=== PATIENT | female | born 1955 | race Caucasian/White ===

== ENCOUNTER 2021-07-22 15:03 | Inpatient (IN) | payer MEDICARE ==
[~2021-07-22] VITALS: Ht 157.5 cm; Wt 74.6 kg
[2021-07-22] MEDS ORDERED: ACETAMINOPHEN 325 MG TABLET PO PRN ×2 (16:00→16:45)
[2021-07-22] MEDS ORDERED: ONDANSETRON HCL 4 MG/2 ML VIAL IVP PRN ×2 (16:00→16:45)
[2021-07-22] MEDS ORDERED: DEXTROSE 50%-WATER 25 GM/50 ML SYRINGE IVP PRN (16:45)
[2021-07-22] MEDS ORDERED: DEXAMETHASONE SOD PHOS 4 MG/ML VIAL IVP SCH (16:45)
[2021-07-22] MEDS ORDERED: MAGNESIUM HYDROXIDE SUSPENSION 30 ML UDCUP PO PRN (16:45)
[2021-07-22] MEDS ORDERED: ALBUTEROL SULFATE HFA 90 MCG/PUFF 8 GM INHALER IH PRN (16:45)
[2021-07-22] MEDS ORDERED: REMDESIVIR 200 MG in SODIUM CHLORIDE 0.9% 250 ML IV ONE (17:00)
[2021-07-22 17:18] LABS: BAND NEUTROPHILS % (MANUAL) 0 % (0-5)
[2021-07-22 17:20] LABS: HEMATOCRIT 39.8 % (36-46); HEMOGLOBIN 13.4 g/dL (12.0-16.0); MEAN CORPUSCULAR HEMOGLOBIN 31.5 pg (26.0-34.0); MEAN CORPUSCULAR HGB CONC 33.7 G/dL (31.0-37.0); MEAN CORPUSCULAR VOLUME 94 fL (80-100); PLATELET COUNT (AUTO) 327 K/uL (150-450); RED BLOOD CELL COUNT(AUTO) 4.25 MIL/uL (4.00-5.20); RED CELL DISTRIBUTION WIDTH 13.4 % (11.5-14.5)
[2021-07-22 17:40] LABS: ALBUMIN 2.9 g/dL (3.4-5.0); BILIRUBIN,TOTAL 0.6 mg/dL (0.1-1.0); CALCIUM, TOTAL 9.1 mg/dL (8.8-10.5); CREATININE 0.99 mg/dL (0.60-1.30); POTASSIUM 3.8 mmol/L (3.5-5.1); TOTAL PROTEIN, SERUM 7.9 g/dL (6.4-8.2)
[2021-07-22 17:45] LABS: LACTIC ACID 1.5 mmol/L (0.4-2.0)
[2021-07-22] MEDS ORDERED: TOCILIZUMAB 600 MG in SODIUM CHLORIDE 0.9% 70 ML IV ONE (18:00)
[2021-07-22 18:04] LABS: C-REACTIVE PROTEIN QUANT 25.71 mg/dL (0.00-0.30); LYMPHOCYTES % (MANUAL) 2 % (22-44); SEGMENTED NEUTROPHILS % 98 % (40-70)
[2021-07-22] MEDS ORDERED: SODIUM CHLORIDE 0.9% 250 ML IV ONE (20:28)
[2021-07-22] MEDS: TEMAZEPAM 15 MG CAPSULE PO SCH (20:38)
[2021-07-22] MEDS: HYDROCODONE/CHLORPHEN POLIS 10-8 MG/5 ML ORAL.SYG PO SCH (20:38)
[2021-07-22] MEDS: FAMOTIDINE 20 MG TABLET PO SCH (20:38)
[2021-07-22] MEDS: BENZONATATE 100 MG CAPSULE PO PRN (20:38)
[2021-07-22] MEDS ORDERED: DEXAMETHASONE SOD PHOS 10 MG/ML VIAL IVP SCH (21:00)
[2021-07-22 21:36] LABS: GLUCOSE,POINT OF CARE 128 MG/DL (70-110)
[2021-07-22] MEDS: DEXAMETHASONE SOD PHOS 10 MG/ML VIAL IVP SCH (22:31)
[2021-07-23] VITALS: BP 129/80
[2021-07-23] MEDS ORDERED: IOHEXOL 350 MG/ML 100 ML VIAL ONE (00:05)
[2021-07-23] MEDS ORDERED: SODIUM CHLORIDE 0.9% 100 ML ONE (00:06)
[2021-07-23] MEDS: HEPARIN SODIUM,PORCINE 5,000 UNITS/ML VIAL SQ SCH ×3 (01:05→16:47)
[2021-07-23 04:00] VITALS: BP 122/80
[2021-07-23 05:53] LABS: ALANINE AMINOTRANSFERASE 73 U/L (12-78); ALBUMIN 2.6 g/dL (3.4-5.0); ALKALINE PHOSPHATASE 84 U/L (46-116); ANION GAP 8 mmol/L (8-16); ASPARTATE AMINOTRANSFERASE 30 U/L (15-37); BILIRUBIN,TOTAL 0.5 mg/dL (0.1-1.0); C-REACTIVE PROTEIN QUANT 24.38 mg/dL (0.00-0.30); CALCIUM, TOTAL 9.1 mg/dL (8.8-10.5); CARBON DIOXIDE 24 mmol/L (22-29); CHLORIDE 102 mmol/L (98-107); CREATININE 0.91 mg/dL (0.60-1.30); GLOMERULAR FILTR. RATE CALC > 60 mL/min (>60); GLUCOSE,RANDOM 141 mg/dL (70-110); POTASSIUM 4.1 mmol/L (3.5-5.1); SODIUM SERUM 134 mmol/L (136-145); TOTAL PROTEIN, SERUM 7.5 g/dL (6.4-8.2); UREA NITROGEN, BLOOD 18 mg/dL (7-18)
[2021-07-23 07:06] LABS: GLUCOSE,POINT OF CARE 133 MG/DL (70-110)
[2021-07-23 07:31] LABS: BASOPHILS % (AUTO) 0.1 % (0.0-2.0); EOSINOPHILS % (AUTO) 0 % (1.0-6.0); HEMATOCRIT 36.9 % (36-46); HEMOGLOBIN 12.5 g/dL (12.0-16.0); LYMPHOCYTES # (AUTO) 0.7 K/uL (1.0-4.8); LYMPHOCYTES % (AUTO) 3.9 % (22.0-44.0); MEAN CORPUSCULAR HEMOGLOBIN 31.6 pg (26.0-34.0); MEAN CORPUSCULAR HGB CONC 33.9 G/dL (31.0-37.0); MEAN CORPUSCULAR VOLUME 93 fL (80-100); MONOCYTES # (AUTO) 0.3 K/uL (0.1-1.0); MONOCYTES % (AUTO) 1.8 % (2.0-9.0); NEUTROPHILS # (AUTO) 16.6 K/uL (1.8-7.7); PLATELET COUNT (AUTO) 325 K/uL (150-450); RED BLOOD CELL COUNT(AUTO) 3.97 MIL/uL (4.00-5.20); RED CELL DISTRIBUTION WIDTH 13.1 % (11.5-14.5)
[2021-07-23 07:33] LABS: NEUTROPHILS % (AUTO) 94.2 % (40.0-70.0)
[2021-07-23 08:00] VITALS: BP 108/68
[2021-07-23] MEDS: AmLODIPine BESYLATE 5 MG TABLET PO SCH (09:47)
[2021-07-23] MEDS: FAMOTIDINE 20 MG TABLET PO SCH ×2 (09:47→21:14)
[2021-07-23] MEDS: HYDROCODONE/CHLORPHEN POLIS 10-8 MG/5 ML ORAL.SYG PO SCH ×2 (09:47→21:15)
[2021-07-23] MEDS: DEXAMETHASONE SOD PHOS 10 MG/ML VIAL IVP SCH ×2 (09:47→23:20)
[2021-07-23] MEDS: REMDESIVIR 100 MG in SODIUM CHLORIDE 0.9% 250 ML IV SCH (16:46)
[2021-07-23] MEDS: CefTRIAXone 1 GM/DEXTROSE 50 ML IV SCH (16:46)
[2021-07-23] MEDS: AZITHROMYCIN 500 MG/NS 250 ML IV SCH (16:47)
[2021-07-23 19:07] VITALS: BP 128/59
[2021-07-23 20:00] VITALS: BP 120/45
[2021-07-23 20:46] LABS: GLUCOSE,POINT OF CARE 124 MG/DL (70-110)
[2021-07-23 20:56] LABS: GLUCOSE,POINT OF CARE 155 MG/DL (70-110)
[2021-07-23] MEDS: BENZONATATE 100 MG CAPSULE PO PRN (21:14)
[2021-07-23] MEDS: TEMAZEPAM 15 MG CAPSULE PO SCH (21:15)
[2021-07-23] MEDS: INSULIN LISPRO 100 UNITS/ML SQ PRN (21:16)
[2021-07-24] VITALS: BP 124/69
[2021-07-24] MEDS: HEPARIN SODIUM,PORCINE 5,000 UNITS/ML VIAL SQ SCH ×3 (00:40→15:16)
[2021-07-24 04:00] VITALS: BP 123/79
[2021-07-24] MEDS: INSULIN LISPRO 100 UNITS/ML SQ PRN (06:35)
[2021-07-24 06:46] LABS: GLUCOSE,POINT OF CARE 147 MG/DL (70-110)
[2021-07-24] MEDS: DEXTRAN 70 0.1%/HYPROMELL 0.3% 0.9 ML OPHTHALMIC SOLUTION [PF] OU SCH ×4 (07:58→20:00)
[2021-07-24] MEDS: HYDROCODONE/CHLORPHEN POLIS 10-8 MG/5 ML ORAL.SYG PO SCH ×2 (07:59→22:20)
[2021-07-24 08:00] VITALS: BP 124/77
[2021-07-24] MEDS: AmLODIPine BESYLATE 5 MG TABLET PO SCH (08:00)
[2021-07-24] MEDS: BENZONATATE 100 MG CAPSULE PO PRN ×2 (08:00→17:23)
[2021-07-24] MEDS: DEXAMETHASONE SOD PHOS 10 MG/ML VIAL IVP SCH ×2 (08:00→22:20)
[2021-07-24] MEDS: FAMOTIDINE 20 MG TABLET PO SCH ×2 (08:00→22:21)
[2021-07-24 08:19] LABS: ALANINE AMINOTRANSFERASE 186 U/L (12-78); ALBUMIN 2.3 g/dL (3.4-5.0); ALKALINE PHOSPHATASE 75 U/L (46-116); ANION GAP 11 mmol/L (8-16); ASPARTATE AMINOTRANSFERASE 92 U/L (15-37); BILIRUBIN,TOTAL 0.3 mg/dL (0.1-1.0); CALCIUM, TOTAL 8.9 mg/dL (8.8-10.5); CARBON DIOXIDE 23 mmol/L (22-29); CHLORIDE 105 mmol/L (98-107); CREATININE 0.82 mg/dL (0.60-1.30); FERRITIN 2562 ng/mL (8-252); GLOMERULAR FILTR. RATE CALC > 60 mL/min (>60); GLUCOSE,RANDOM 156 mg/dL (70-110); POTASSIUM 4.5 mmol/L (3.5-5.1); SODIUM SERUM 139 mmol/L (136-145); TOTAL PROTEIN, SERUM 6.6 g/dL (6.4-8.2); UREA NITROGEN, BLOOD 32 mg/dL (7-18)
[2021-07-24 12:00] VITALS: BP 143/80
[2021-07-24 12:06] LABS: GLUCOSE,POINT OF CARE 134 MG/DL (70-110)
[2021-07-24] MEDS: CefTRIAXone 1 GM/DEXTROSE 50 ML IV SCH (15:16)
[2021-07-24 16:00] VITALS: BP 151/76
[2021-07-24] MEDS: REMDESIVIR 100 MG in SODIUM CHLORIDE 0.9% 250 ML IV SCH (16:35)
[2021-07-24] MEDS: AZITHROMYCIN 500 MG/NS 250 ML IV SCH (16:35)
[2021-07-24] MEDS ORDERED: SODIUM CHLORIDE 0.9% 250 ML IV ONE (17:01)
[2021-07-24 20:00] VITALS: BP 114/58
[2021-07-24] MEDS: TEMAZEPAM 15 MG CAPSULE PO SCH (22:21)
[2021-07-25] VITALS: BP 137/88
[2021-07-25] MEDS: DEXTRAN 70 0.1%/HYPROMELL 0.3% 0.9 ML OPHTHALMIC SOLUTION [PF] OU SCH ×6 (00:26→21:45)
[2021-07-25] MEDS: HEPARIN SODIUM,PORCINE 5,000 UNITS/ML VIAL SQ SCH ×3 (00:26→16:32)
[2021-07-25 04:00] VITALS: BP 134/76
[2021-07-25 06:44] LABS: BASOPHILS % (AUTO) 0.2 % (0.0-2.0); EOSINOPHILS % (AUTO) 0 % (1.0-6.0); HEMATOCRIT 37.4 % (36-46); HEMOGLOBIN 12.6 g/dL (12.0-16.0); LYMPHOCYTES # (AUTO) 0.5 K/uL (1.0-4.8); LYMPHOCYTES % (AUTO) 3.7 % (22.0-44.0); MEAN CORPUSCULAR HEMOGLOBIN 31.5 pg (26.0-34.0); MEAN CORPUSCULAR HGB CONC 33.9 G/dL (31.0-37.0); MEAN CORPUSCULAR VOLUME 93 fL (80-100); MONOCYTES # (AUTO) 0.3 K/uL (0.1-1.0); MONOCYTES % (AUTO) 2.1 % (2.0-9.0); NEUTROPHILS # (AUTO) 13.5 K/uL (1.8-7.7); PLATELET COUNT (AUTO) 343 K/uL (150-450); RED BLOOD CELL COUNT(AUTO) 4.01 MIL/uL (4.00-5.20); RED CELL DISTRIBUTION WIDTH 12.7 % (11.5-14.5)
[2021-07-25 07:41] LABS: ALANINE AMINOTRANSFERASE 182 U/L (12-78); ALBUMIN 2.3 g/dL (3.4-5.0); ALKALINE PHOSPHATASE 72 U/L (46-116); ANION GAP 12 mmol/L (8-16); ASPARTATE AMINOTRANSFERASE 52 U/L (15-37); BILIRUBIN,TOTAL 0.3 mg/dL (0.1-1.0); C-REACTIVE PROTEIN QUANT 6.01 mg/dL (0.00-0.30); CALCIUM, TOTAL 8.8 mg/dL (8.8-10.5); CARBON DIOXIDE 23 mmol/L (22-29); CHLORIDE 105 mmol/L (98-107); CREATININE 0.78 mg/dL (0.60-1.30); FERRITIN 1871 ng/mL (8-252); GLOMERULAR FILTR. RATE CALC > 60 mL/min (>60); GLUCOSE,RANDOM 173 mg/dL (70-110); POTASSIUM 4.6 mmol/L (3.5-5.1); SODIUM SERUM 140 mmol/L (136-145); TOTAL PROTEIN, SERUM 6.4 g/dL (6.4-8.2); UREA NITROGEN, BLOOD 33 mg/dL (7-18)
[2021-07-25 08:00] VITALS: BP 121/80
[2021-07-25] MEDS: HYDROCODONE/CHLORPHEN POLIS 10-8 MG/5 ML ORAL.SYG PO SCH ×2 (09:07→21:45)
[2021-07-25] MEDS: AmLODIPine BESYLATE 5 MG TABLET PO SCH (09:07)
[2021-07-25] MEDS: ETHYL ALCOHOL 62% ANTISEPTIC NASAL INHALANT 0.6 ML AMPUL NASAL SCH ×2 (09:07→21:45)
[2021-07-25] MEDS: DEXAMETHASONE SOD PHOS 10 MG/ML VIAL IVP SCH ×2 (09:07→21:46)
[2021-07-25] MEDS: FAMOTIDINE 20 MG TABLET PO SCH ×2 (09:09→21:48)
[2021-07-25 12:00] VITALS: BP 121/80
[2021-07-25 14:11] LABS: GLUCOSE,POINT OF CARE 159 MG/DL (70-110)
[2021-07-25 16:00] VITALS: BP 120/76
[2021-07-25] MEDS: BENZONATATE 100 MG CAPSULE PO PRN (16:29)
[2021-07-25] MEDS: CefTRIAXone 1 GM/DEXTROSE 50 ML IV SCH (16:33)
[2021-07-25] MEDS: REMDESIVIR 100 MG in SODIUM CHLORIDE 0.9% 250 ML IV SCH (17:14)
[2021-07-25] MEDS: AZITHROMYCIN 500 MG/NS 250 ML IV SCH (17:17)
[2021-07-25] MEDS ORDERED: SODIUM CHLORIDE 0.9% 250 ML IV ONE (17:19)
[2021-07-25 20:00] VITALS: BP 138/75
[2021-07-25] MEDS: TEMAZEPAM 15 MG CAPSULE PO SCH (21:46)
[2021-07-26] VITALS: BP 124/68
[2021-07-26] MEDS: HEPARIN SODIUM,PORCINE 5,000 UNITS/ML VIAL SQ SCH ×3 (01:16→17:21)
[2021-07-26] MEDS: DEXTRAN 70 0.1%/HYPROMELL 0.3% 0.9 ML OPHTHALMIC SOLUTION [PF] OU SCH ×6 (01:17→21:44)
[2021-07-26 01:26] LABS: GLUCOSE,POINT OF CARE 175 MG/DL (70-110)
[2021-07-26 04:00] VITALS: BP 143/78
[2021-07-26 05:45] LABS: ABG BASE EXCESS -2.4 mmol/L (-2.0-3.0); ABG CARBOXYHEMOGLOBIN 0.2 % (0.0-1.5); ABG HCO3 22.9 mmol/L (22.0-26.0); ABG METHEMOGLOBIN 0.3 % (0.0-1.5); ABG OXYGEN SATURATION 92.2 % (95.0-98.0); ABG OXYHEMOGLOBIN 91.7 % (94.0-100.0); ABG PCO2 35 mmHg (35-45); ABG PH 7.421 (7.35-7.450); ABG TOTAL HEMOGLOBIN 13.2 G/dL (12.0-18.0); PO2, ARTERIAL BG 62.8 mmHg (79.0-87.0); SOURCE, BLOOD GAS ARTERIAL; TEMPERATURE, FAHRENHEIT, BG 98.6 FAHREN (96.0-98.6)
[2021-07-26 05:46] LABS: O2 DEVICE,BLOOD GAS HFNC (ROOM AIR); SITE, BLOOD GAS LFT RADIAL
[2021-07-26 06:40] LABS: ALANINE AMINOTRANSFERASE 145 U/L (12-78); ALBUMIN 2.4 g/dL (3.4-5.0); ALKALINE PHOSPHATASE 68 U/L (46-116); ANION GAP 11 mmol/L (8-16); ASPARTATE AMINOTRANSFERASE 27 U/L (15-37); BILIRUBIN,TOTAL 0.3 mg/dL (0.1-1.0); CALCIUM, TOTAL 8.9 mg/dL (8.8-10.5); CARBON DIOXIDE 24 mmol/L (22-29); CHLORIDE 104 mmol/L (98-107); GLOMERULAR FILTR. RATE CALC > 60 mL/min (>60); GLUCOSE,RANDOM 176 mg/dL (70-110); POTASSIUM 4.6 mmol/L (3.5-5.1); SODIUM SERUM 139 mmol/L (136-145); TOTAL PROTEIN, SERUM 6.2 g/dL (6.4-8.2); UREA NITROGEN, BLOOD 31 mg/dL (7-18)
[2021-07-26 08:00] VITALS: BP 134/62
[2021-07-26] MEDS: ETHYL ALCOHOL 62% ANTISEPTIC NASAL INHALANT 0.6 ML AMPUL NASAL SCH ×2 (08:24→21:43)
[2021-07-26] MEDS: DEXAMETHASONE SOD PHOS 10 MG/ML VIAL IVP SCH ×2 (08:24→21:43)
[2021-07-26] MEDS: AmLODIPine BESYLATE 5 MG TABLET PO SCH (08:24)
[2021-07-26] MEDS: HYDROCODONE/CHLORPHEN POLIS 10-8 MG/5 ML ORAL.SYG PO SCH ×2 (08:27→21:44)
[2021-07-26] MEDS: FAMOTIDINE 20 MG TABLET PO SCH ×2 (08:27→21:43)
[2021-07-26 09:12] LABS: GLUCOSE,POINT OF CARE 159 MG/DL (70-110)
[2021-07-26 12:00] VITALS: BP 125/71
[2021-07-26 13:06] LABS: GLUCOSE,POINT OF CARE 168 MG/DL (70-110)
[2021-07-26 16:00] VITALS: BP 143/111
[2021-07-26] MEDS: INSULIN LISPRO 100 UNITS/ML SQ PRN (17:31)
[2021-07-26 17:32] LABS: GLUCOSE,POINT OF CARE 184 MG/DL (70-110)
[2021-07-26] MEDS: REMDESIVIR 100 MG in SODIUM CHLORIDE 0.9% 250 ML IV SCH (17:42)
[2021-07-26 20:44] VITALS: BP 150/94
[2021-07-26] MEDS: TEMAZEPAM 15 MG CAPSULE PO SCH (21:44)
[2021-07-26 22:45] LABS: GLUCOSE,POINT OF CARE 205 MG/DL (70-110)
[2021-07-27] VITALS: BP 149/79
[2021-07-27] MEDS: DEXTRAN 70 0.1%/HYPROMELL 0.3% 0.9 ML OPHTHALMIC SOLUTION [PF] OU SCH ×7 (00:34→23:39)
[2021-07-27] MEDS: HEPARIN SODIUM,PORCINE 5,000 UNITS/ML VIAL SQ SCH ×4 (00:34→23:39)
[2021-07-27 04:10] VITALS: BP 135/75
[2021-07-27 06:56] LABS: GLUCOSE,POINT OF CARE 164 MG/DL (70-110)
[2021-07-27 08:00] VITALS: BP 139/89
[2021-07-27] MEDS: ETHYL ALCOHOL 62% ANTISEPTIC NASAL INHALANT 0.6 ML AMPUL NASAL SCH ×2 (09:33→20:44)
[2021-07-27] MEDS: DEXAMETHASONE SOD PHOS 10 MG/ML VIAL IVP SCH (09:34)
[2021-07-27] MEDS: FAMOTIDINE 20 MG TABLET PO SCH ×2 (09:35→20:44)
[2021-07-27] MEDS: HYDROCODONE/CHLORPHEN POLIS 10-8 MG/5 ML ORAL.SYG PO SCH ×2 (09:35→20:44)
[2021-07-27] MEDS: AmLODIPine BESYLATE 5 MG TABLET PO SCH (09:35)
[2021-07-27 12:00] VITALS: BP 136/79
[2021-07-27 12:06] LABS: GLUCOSE,POINT OF CARE 134 MG/DL (70-110)
[2021-07-27 16:00] VITALS: BP 120/75
[2021-07-27 17:56] LABS: GLUCOSE,POINT OF CARE 149 MG/DL (70-110)
[2021-07-27 20:13] VITALS: BP 112/63
[2021-07-27] MEDS: TEMAZEPAM 15 MG CAPSULE PO SCH (20:44)
[2021-07-27] MEDS: INSULIN LISPRO 100 UNITS/ML SQ PRN (21:08)
[2021-07-27 21:36] LABS: GLUCOSE,POINT OF CARE 186 MG/DL (70-110)
[2021-07-28] VITALS: BP 127/71
[2021-07-28] MEDS: DEXTRAN 70 0.1%/HYPROMELL 0.3% 0.9 ML OPHTHALMIC SOLUTION [PF] OU SCH ×5 (02:52→20:33)
[2021-07-28 04:00] VITALS: BP 123/71
[2021-07-28 07:01] LABS: GLUCOSE,POINT OF CARE 121 MG/DL (70-110)
[2021-07-28 08:00] VITALS: BP 109/67
[2021-07-28] MEDS: HEPARIN SODIUM,PORCINE 5,000 UNITS/ML VIAL SQ SCH ×2 (08:07→15:17)
[2021-07-28] MEDS: AmLODIPine BESYLATE 5 MG TABLET PO SCH (08:07)
[2021-07-28] MEDS: FAMOTIDINE 20 MG TABLET PO SCH ×2 (08:07→20:33)
[2021-07-28] MEDS: BENZONATATE 100 MG CAPSULE PO PRN (08:07)
[2021-07-28] MEDS: DEXAMETHASONE SOD PHOS 10 MG/ML VIAL IVP SCH (09:00)
[2021-07-28] MEDS: ETHYL ALCOHOL 62% ANTISEPTIC NASAL INHALANT 0.6 ML AMPUL NASAL SCH ×2 (09:41→20:33)
[2021-07-28] MEDS: HYDROCODONE/CHLORPHEN POLIS 10-8 MG/5 ML ORAL.SYG PO SCH ×2 (09:41→20:33)
[2021-07-28 11:56] LABS: GLUCOSE,POINT OF CARE 123 MG/DL (70-110)
[2021-07-28 12:00] VITALS: BP 109/61
[2021-07-28 16:00] VITALS: BP 125/81
[2021-07-28 17:16] LABS: GLUCOSE,POINT OF CARE 97 MG/DL (70-110)
[2021-07-28 20:00] VITALS: BP 108/69
[2021-07-28] MEDS: TEMAZEPAM 15 MG CAPSULE PO SCH (20:33)
[2021-07-28 22:26] LABS: GLUCOSE,POINT OF CARE 108 MG/DL (70-110)
[2021-07-29] VITALS (7 sets, daily range): BP systolic 94–144; BP diastolic 30–78
[2021-07-29] MEDS: DEXTRAN 70 0.1%/HYPROMELL 0.3% 0.9 ML OPHTHALMIC SOLUTION [PF] OU SCH ×6 (01:53→20:10)
[2021-07-29] MEDS: HEPARIN SODIUM,PORCINE 5,000 UNITS/ML VIAL SQ SCH ×3 (01:53→16:06)
[2021-07-29 05:52] LABS: BASOPHILS % (AUTO) 0.5 % (0.0-2.0); EOSINOPHILS % (AUTO) 1.1 % (1.0-6.0); HEMATOCRIT 43.4 % (36-46); HEMOGLOBIN 14.9 g/dL (12.0-16.0); LYMPHOCYTES # (AUTO) 1.7 K/uL (1.0-4.8); LYMPHOCYTES % (AUTO) 18.2 % (22.0-44.0); MEAN CORPUSCULAR HGB CONC 34.4 G/dL (31.0-37.0); MEAN CORPUSCULAR VOLUME 93 fL (80-100); MONOCYTES # (AUTO) 0.6 K/uL (0.1-1.0); MONOCYTES % (AUTO) 6.2 % (2.0-9.0); NEUTROPHILS # (AUTO) 6.8 K/uL (1.8-7.7); PLATELET COUNT (AUTO) 346 K/uL (150-450); RED BLOOD CELL COUNT(AUTO) 4.67 MIL/uL (4.00-5.20); RED CELL DISTRIBUTION WIDTH 12.9 % (11.5-14.5)
[2021-07-29 06:11] LABS: ANION GAP 8 mmol/L (8-16); C-REACTIVE PROTEIN QUANT 0.72 mg/dL (0.00-0.30); CALCIUM, TOTAL 8.8 mg/dL (8.8-10.5); CARBON DIOXIDE 30 mmol/L (22-29); CHLORIDE 99 mmol/L (98-107); CREATININE 0.75 mg/dL (0.60-1.30); GLOMERULAR FILTR. RATE CALC > 60 mL/min (>60); GLUCOSE,RANDOM 99 mg/dL (70-110); POTASSIUM 4.4 mmol/L (3.5-5.1); SODIUM SERUM 137 mmol/L (136-145); UREA NITROGEN, BLOOD 30 mg/dL (7-18)
[2021-07-29 06:46] LABS: GLUCOSE,POINT OF CARE 99 MG/DL (70-110)
[2021-07-29] MEDS: FAMOTIDINE 20 MG TABLET PO SCH ×2 (07:48→20:10)
[2021-07-29] MEDS: AmLODIPine BESYLATE 5 MG TABLET PO SCH (07:48)
[2021-07-29] MEDS: BENZONATATE 100 MG CAPSULE PO PRN ×2 (07:48→16:36)
[2021-07-29] MEDS: DEXAMETHASONE SOD PHOS 10 MG/ML VIAL IVP SCH (07:48)
[2021-07-29] MEDS: HYDROCODONE/CHLORPHEN POLIS 10-8 MG/5 ML ORAL.SYG PO SCH ×2 (07:49→20:11)
[2021-07-29] MEDS: ETHYL ALCOHOL 62% ANTISEPTIC NASAL INHALANT 0.6 ML AMPUL NASAL SCH ×2 (07:55→20:10)
[2021-07-29] MEDS: INSULIN LISPRO 100 UNITS/ML SQ PRN ×3 (12:13→21:55)
[2021-07-29 16:47] LABS: GLUCOSE,POINT OF CARE 162 MG/DL (70-110)
[2021-07-29 18:01] LABS: GLUCOSE,POINT OF CARE 162 MG/DL (70-110)
[2021-07-29] MEDS: TEMAZEPAM 15 MG CAPSULE PO SCH (20:10)
[2021-07-29 22:06] LABS: GLUCOSE,POINT OF CARE 158 MG/DL (70-110)
[2021-07-30] VITALS: BP 114/72
[2021-07-30] MEDS: HEPARIN SODIUM,PORCINE 5,000 UNITS/ML VIAL SQ SCH ×3 (01:30→15:53)
[2021-07-30 04:00] VITALS: BP 112/61
[2021-07-30] MEDS: DEXTRAN 70 0.1%/HYPROMELL 0.3% 0.9 ML OPHTHALMIC SOLUTION [PF] OU SCH ×6 (04:00→21:38)
[2021-07-30] MEDS: AmLODIPine BESYLATE 5 MG TABLET PO SCH (07:51)
[2021-07-30] MEDS: FAMOTIDINE 20 MG TABLET PO SCH ×2 (07:51→21:38)
[2021-07-30] MEDS: HYDROCODONE/CHLORPHEN POLIS 10-8 MG/5 ML ORAL.SYG PO SCH ×2 (07:51→21:38)
[2021-07-30] MEDS: DEXAMETHASONE SOD PHOS 10 MG/ML VIAL IVP SCH (07:51)
[2021-07-30] MEDS: BENZONATATE 100 MG CAPSULE PO PRN (07:52)
[2021-07-30] MEDS: ETHYL ALCOHOL 62% ANTISEPTIC NASAL INHALANT 0.6 ML AMPUL NASAL SCH ×2 (07:52→21:38)
[2021-07-30 08:00] VITALS: BP 110/48
[2021-07-30 12:00] VITALS: BP 120/73
[2021-07-30] MEDS: INSULIN LISPRO 100 UNITS/ML SQ PRN ×2 (12:11→16:58)
[2021-07-30 12:21] LABS: GLUCOSE,POINT OF CARE 161 MG/DL (70-110)
[2021-07-30 16:00] VITALS: BP 133/91
[2021-07-30 17:06] LABS: GLUCOSE,POINT OF CARE 165 MG/DL (70-110)
[2021-07-30 20:00] VITALS: BP 131/71
[2021-07-30] MEDS: TEMAZEPAM 15 MG CAPSULE PO SCH (21:38)
[2021-07-31] VITALS: BP 126/76
[2021-07-31] MEDS: DEXTRAN 70 0.1%/HYPROMELL 0.3% 0.9 ML OPHTHALMIC SOLUTION [PF] OU SCH ×7 (00:49→23:37)
[2021-07-31] MEDS: HEPARIN SODIUM,PORCINE 5,000 UNITS/ML VIAL SQ SCH ×4 (00:49→23:37)
[2021-07-31 04:00] VITALS: BP 153/83
[2021-07-31 05:42] LABS: GLUCOSE,POINT OF CARE 133 MG/DL (70-110)
[2021-07-31 06:26] LABS: GLUCOSE,POINT OF CARE 111 MG/DL (70-110)
[2021-07-31 08:00] VITALS: BP 132/74
[2021-07-31] MEDS: DEXAMETHASONE SOD PHOS 10 MG/ML VIAL IVP SCH (08:29)
[2021-07-31] MEDS: HYDROCODONE/CHLORPHEN POLIS 10-8 MG/5 ML ORAL.SYG PO SCH ×2 (08:29→20:42)
[2021-07-31] MEDS: AmLODIPine BESYLATE 5 MG TABLET PO SCH (08:29)
[2021-07-31] MEDS: FAMOTIDINE 20 MG TABLET PO SCH ×2 (08:29→20:42)
[2021-07-31] MEDS ORDERED: LOPERAMIDE HCL 2 MG CAPSULE PO PRN (08:30)
[2021-07-31] MEDS: ETHYL ALCOHOL 62% ANTISEPTIC NASAL INHALANT 0.6 ML AMPUL NASAL SCH ×2 (08:30→20:42)
[2021-07-31 08:57] LABS: BASOPHILS % (AUTO) 0.6 % (0.0-2.0); EOSINOPHILS % (AUTO) 0.2 % (1.0-6.0); HEMATOCRIT 38.2 % (36-46); HEMOGLOBIN 13.4 g/dL (12.0-16.0); LYMPHOCYTES # (AUTO) 1.1 K/uL (1.0-4.8); LYMPHOCYTES % (AUTO) 6.7 % (22.0-44.0); MEAN CORPUSCULAR VOLUME 91 fL (80-100); MONOCYTES # (AUTO) 0.7 K/uL (0.1-1.0); MONOCYTES % (AUTO) 4.6 % (2.0-9.0); NEUTROPHILS # (AUTO) 13.8 K/uL (1.8-7.7); PLATELET COUNT (AUTO) 267 K/uL (150-450); RED BLOOD CELL COUNT(AUTO) 4.19 MIL/uL (4.00-5.20); RED CELL DISTRIBUTION WIDTH 12.7 % (11.5-14.5)
[2021-07-31 09:02] LABS: ANION GAP 4 mmol/L (8-16); CALCIUM, TOTAL 8.8 mg/dL (8.8-10.5); CARBON DIOXIDE 31 mmol/L (22-29); CHLORIDE 101 mmol/L (98-107); CREATININE 0.75 mg/dL (0.60-1.30); GLOMERULAR FILTR. RATE CALC > 60 mL/min (>60); GLUCOSE,RANDOM 106 mg/dL (70-110); POTASSIUM 4.7 mmol/L (3.5-5.1); SODIUM SERUM 136 mmol/L (136-145); UREA NITROGEN, BLOOD 26 mg/dL (7-18)
[2021-07-31 09:04] LABS: NEUTROPHILS % (AUTO) 87.9 % (40.0-70.0)
[2021-07-31 12:00] VITALS: BP 111/66
[2021-07-31 16:00] VITALS: BP 96/41
[2021-07-31 18:21] LABS: GLUCOSE,POINT OF CARE 128 MG/DL (70-110)
[2021-07-31 20:25] VITALS: BP 126/83
[2021-07-31] MEDS: TEMAZEPAM 15 MG CAPSULE PO SCH (20:42)
[2021-08-01] VITALS: BP 117/52
[2021-08-01 00:46] LABS: GLUCOSE,POINT OF CARE 131 MG/DL (70-110)
[2021-08-01 04:36] VITALS: BP 140/88
[2021-08-01] MEDS: DEXTRAN 70 0.1%/HYPROMELL 0.3% 0.9 ML OPHTHALMIC SOLUTION [PF] OU SCH ×5 (04:41→20:00)
[2021-08-01] MEDS: FAMOTIDINE 20 MG TABLET PO SCH ×2 (07:20→21:36)
[2021-08-01] MEDS: ETHYL ALCOHOL 62% ANTISEPTIC NASAL INHALANT 0.6 ML AMPUL NASAL SCH ×2 (07:20→21:36)
[2021-08-01] MEDS: BENZONATATE 100 MG CAPSULE PO PRN (07:20)
[2021-08-01] MEDS: AmLODIPine BESYLATE 5 MG TABLET PO SCH ×2 (07:20→07:35)
[2021-08-01] MEDS: HEPARIN SODIUM,PORCINE 5,000 UNITS/ML VIAL SQ SCH ×2 (07:20→16:46)
[2021-08-01] MEDS: HYDROCODONE/CHLORPHEN POLIS 10-8 MG/5 ML ORAL.SYG PO SCH ×2 (07:21→17:14)
[2021-08-01 08:00] VITALS: BP 121/74
[2021-08-01 08:06] LABS: GLUCOSE,POINT OF CARE 89 MG/DL (70-110)
[2021-08-01 16:00] VITALS: BP 108/69
[2021-08-01 17:26] LABS: GLUCOMETER DEV NAME(LOC) 5S.1B; GLUCOSE,POINT OF CARE 101 MG/DL (70-110)
[2021-08-01 17:26] LABS: GLUCOMETER DEV NAME(LOC) 5S.1B; GLUCOSE,POINT OF CARE 99 MG/DL (70-110)
[2021-08-01 21:35] VITALS: BP 117/69
[2021-08-01] MEDS: TEMAZEPAM 15 MG CAPSULE PO PRN (21:40)
[2021-08-01 23:16] LABS: GLUCOMETER DEV NAME(LOC) 5S.1B; GLUCOSE,POINT OF CARE 100 MG/DL (70-110)
[2021-08-02] MEDS: DEXTRAN 70 0.1%/HYPROMELL 0.3% 0.9 ML OPHTHALMIC SOLUTION [PF] OU SCH ×6 (04:00→20:27)
[2021-08-02] MEDS: BENZONATATE 100 MG CAPSULE PO PRN ×2 (06:26→17:28)
[2021-08-02 07:45] VITALS: BP 119/70
[2021-08-02 08:11] LABS: GLUCOMETER DEV NAME(LOC) 5S.2B; GLUCOSE,POINT OF CARE 74 MG/DL (70-110)
[2021-08-02] MEDS: FAMOTIDINE 20 MG TABLET PO SCH ×2 (09:53→20:27)
[2021-08-02] MEDS: ETHYL ALCOHOL 62% ANTISEPTIC NASAL INHALANT 0.6 ML AMPUL NASAL SCH ×2 (09:53→20:28)
[2021-08-02] MEDS: AmLODIPine BESYLATE 5 MG TABLET PO SCH (09:54)
[2021-08-02 11:51] VITALS: BP 93/55
[2021-08-02 15:40] VITALS: BP 99/58
[2021-08-02 17:16] LABS: GLUCOMETER DEV NAME(LOC) 5S.2B; GLUCOSE,POINT OF CARE 109 MG/DL (70-110)
[2021-08-02 19:51] LABS: GLUCOMETER DEV NAME(LOC) 5S.1B; GLUCOSE,POINT OF CARE 89 MG/DL (70-110)
[2021-08-02 20:00] VITALS: BP 109/44
[2021-08-02] MEDS: TEMAZEPAM 15 MG CAPSULE PO PRN (20:27)
[2021-08-02 21:56] LABS: GLUCOMETER DEV NAME(LOC) 5S.2B; GLUCOSE,POINT OF CARE 128 MG/DL (70-110)
[2021-08-03] VITALS: BP 91/54
[2021-08-03] MEDS: DEXTRAN 70 0.1%/HYPROMELL 0.3% 0.9 ML OPHTHALMIC SOLUTION [PF] OU SCH ×6 (00:22→21:42)
[2021-08-03] MEDS: BENZONATATE 100 MG CAPSULE PO PRN ×2 (06:50→21:57)
[2021-08-03 07:06] VITALS: BP 117/48
[2021-08-03 07:10] LABS: GLUCOMETER DEV NAME(LOC) 5S.2B; GLUCOSE,POINT OF CARE 98 MG/DL (70-110)
[2021-08-03 08:14] VITALS: BP 102/65
[2021-08-03 08:51] LABS: BASOPHILS % (AUTO) 0.3 % (0.0-2.0); EOSINOPHILS % (AUTO) 1.1 % (1.0-6.0); HEMATOCRIT 40.1 % (36-46); LYMPHOCYTES # (AUTO) 1.7 K/uL (1.0-4.8); LYMPHOCYTES % (AUTO) 18.9 % (22.0-44.0); MEAN CORPUSCULAR HEMOGLOBIN 32.5 pg (26.0-34.0); MEAN CORPUSCULAR VOLUME 93 fL (80-100); MONOCYTES # (AUTO) 0.8 K/uL (0.1-1.0); MONOCYTES % (AUTO) 9.2 % (2.0-9.0); NEUTROPHILS # (AUTO) 6.1 K/uL (1.8-7.7); NEUTROPHILS % (AUTO) 70.5 % (40.0-70.0); PLATELET COUNT (AUTO) 217 K/uL (150-450); RED BLOOD CELL COUNT(AUTO) 4.31 MIL/uL (4.00-5.20)
[2021-08-03] MEDS: ETHYL ALCOHOL 62% ANTISEPTIC NASAL INHALANT 0.6 ML AMPUL NASAL SCH ×2 (09:00→21:42)
[2021-08-03 09:07] LABS: ALANINE AMINOTRANSFERASE 134 U/L (12-78); ALBUMIN 3.1 g/dL (3.4-5.0); ALKALINE PHOSPHATASE 64 U/L (46-116); ANION GAP 8 mmol/L (8-16); ASPARTATE AMINOTRANSFERASE 39 U/L (15-37); BILIRUBIN,TOTAL 0.9 mg/dL (0.1-1.0); CALCIUM, TOTAL 9.1 mg/dL (8.8-10.5); CARBON DIOXIDE 30 mmol/L (22-29); CHLORIDE 100 mmol/L (98-107); CREATININE 0.83 mg/dL (0.60-1.30); GLOMERULAR FILTR. RATE CALC > 60 mL/min (>60); GLUCOSE,RANDOM 100 mg/dL (70-110); POTASSIUM 4.3 mmol/L (3.5-5.1); SODIUM SERUM 138 mmol/L (136-145); TOTAL PROTEIN, SERUM 6.4 g/dL (6.4-8.2); UREA NITROGEN, BLOOD 18 mg/dL (7-18)
[2021-08-03] MEDS: AmLODIPine BESYLATE 5 MG TABLET PO SCH (09:14)
[2021-08-03] MEDS: FAMOTIDINE 20 MG TABLET PO SCH ×2 (09:14→21:42)
[2021-08-03 14:56] LABS: GLUCOMETER DEV NAME(LOC) 5S.1B; GLUCOSE,POINT OF CARE 97 MG/DL (70-110)
[2021-08-03 15:45] VITALS: BP 111/84
[2021-08-03 17:51] LABS: GLUCOMETER DEV NAME(LOC) 5S.1B; GLUCOSE,POINT OF CARE 102 MG/DL (70-110)
[2021-08-03 20:35] VITALS: BP 96/57
[2021-08-03] MEDS: TEMAZEPAM 15 MG CAPSULE PO PRN (21:42)
[2021-08-04] MEDS: DEXTRAN 70 0.1%/HYPROMELL 0.3% 0.9 ML OPHTHALMIC SOLUTION [PF] OU SCH ×6 (00:26→21:20)
[2021-08-04 00:40] VITALS: BP 91/51
[2021-08-04 02:21] LABS: GLUCOMETER DEV NAME(LOC) 5S.1B; GLUCOSE,POINT OF CARE 114 MG/DL (70-110)
[2021-08-04 04:20] VITALS: BP 93/51
[2021-08-04] MEDS: ETHYL ALCOHOL 62% ANTISEPTIC NASAL INHALANT 0.6 ML AMPUL NASAL SCH ×2 (08:20→21:19)
[2021-08-04] MEDS: FAMOTIDINE 20 MG TABLET PO SCH ×2 (08:21→21:19)
[2021-08-04] MEDS: AmLODIPine BESYLATE 5 MG TABLET PO SCH (08:21)
[2021-08-04 08:30] VITALS: BP 100/62
[2021-08-04 08:56] LABS: BASOPHILS % (AUTO) 0.6 % (0.0-2.0); EOSINOPHILS % (AUTO) 1.3 % (1.0-6.0); HEMATOCRIT 40.3 % (36-46); HEMOGLOBIN 13.8 g/dL (12.0-16.0); LYMPHOCYTES # (AUTO) 1.7 K/uL (1.0-4.8); LYMPHOCYTES % (AUTO) 19.9 % (22.0-44.0); MEAN CORPUSCULAR HGB CONC 34.3 G/dL (31.0-37.0); MEAN CORPUSCULAR VOLUME 93 fL (80-100); MONOCYTES # (AUTO) 0.8 K/uL (0.1-1.0); MONOCYTES % (AUTO) 8.9 % (2.0-9.0); NEUTROPHILS # (AUTO) 5.9 K/uL (1.8-7.7); NEUTROPHILS % (AUTO) 69.3 % (40.0-70.0); PLATELET COUNT (AUTO) 216 K/uL (150-450); RED BLOOD CELL COUNT(AUTO) 4.32 MIL/uL (4.00-5.20); RED CELL DISTRIBUTION WIDTH 13.3 % (11.5-14.5)
[2021-08-04 09:07] LABS: ALANINE AMINOTRANSFERASE 149 U/L (12-78); ALBUMIN 3.1 g/dL (3.4-5.0); ALKALINE PHOSPHATASE 63 U/L (46-116); ANION GAP 9 mmol/L (8-16); ASPARTATE AMINOTRANSFERASE 50 U/L (15-37); BILIRUBIN,TOTAL 0.8 mg/dL (0.1-1.0); CALCIUM, TOTAL 9.6 mg/dL (8.8-10.5); CARBON DIOXIDE 28 mmol/L (22-29); CHLORIDE 102 mmol/L (98-107); CREATININE 0.78 mg/dL (0.60-1.30); GLOMERULAR FILTR. RATE CALC > 60 mL/min (>60); GLUCOSE,RANDOM 108 mg/dL (70-110); SODIUM SERUM 139 mmol/L (136-145); TOTAL PROTEIN, SERUM 6.3 g/dL (6.4-8.2); UREA NITROGEN, BLOOD 17 mg/dL (7-18)
[2021-08-04 12:01] LABS: GLUCOMETER DEV NAME(LOC) 5N.1C; GLUCOSE,POINT OF CARE 94 MG/DL (70-110)
[2021-08-04 14:23] VITALS: BP 95/58
[2021-08-04 15:06] LABS: GLUCOMETER DEV NAME(LOC) 5S.1B; GLUCOSE,POINT OF CARE 101 MG/DL (70-110)
[2021-08-04 17:10] VITALS: BP 95/69
[2021-08-04 18:12] LABS: GLUCOMETER DEV NAME(LOC) 5S.1B; GLUCOSE,POINT OF CARE 103 MG/DL (70-110)
[2021-08-04 20:44] VITALS: BP 105/64
[2021-08-04] MEDS: BENZONATATE 100 MG CAPSULE PO PRN (21:19)
[2021-08-04 21:22] LABS: GLUCOMETER DEV NAME(LOC) 6N.1; GLUCOSE,POINT OF CARE 102 MG/DL (70-110)
[2021-08-04] MEDS: TEMAZEPAM 15 MG CAPSULE PO PRN (21:41)
[2021-08-05] MEDS: DEXTRAN 70 0.1%/HYPROMELL 0.3% 0.9 ML OPHTHALMIC SOLUTION [PF] OU SCH ×6 (00:15→20:16)
[2021-08-05 04:52] VITALS: BP 130/70
[2021-08-05 05:31] LABS: GLUCOMETER DEV NAME(LOC) 6N.1; GLUCOSE,POINT OF CARE 105 MG/DL (70-110)
[2021-08-05 07:22] LABS: BASOPHILS % (AUTO) 0.6 % (0.0-2.0); EOSINOPHILS % (AUTO) 1.8 % (1.0-6.0); HEMATOCRIT 36.3 % (36-46); HEMOGLOBIN 12.4 g/dL (12.0-16.0); LYMPHOCYTES # (AUTO) 1.4 K/uL (1.0-4.8); LYMPHOCYTES % (AUTO) 17.3 % (22.0-44.0); MEAN CORPUSCULAR HEMOGLOBIN 32.1 pg (26.0-34.0); MEAN CORPUSCULAR HGB CONC 34.3 G/dL (31.0-37.0); MEAN CORPUSCULAR VOLUME 94 fL (80-100); MONOCYTES # (AUTO) 0.8 K/uL (0.1-1.0); MONOCYTES % (AUTO) 10.1 % (2.0-9.0); NEUTROPHILS # (AUTO) 5.5 K/uL (1.8-7.7); NEUTROPHILS % (AUTO) 70.2 % (40.0-70.0); PLATELET COUNT (AUTO) 188 K/uL (150-450); RED BLOOD CELL COUNT(AUTO) 3.87 MIL/uL (4.00-5.20); RED CELL DISTRIBUTION WIDTH 13.2 % (11.5-14.5)
[2021-08-05 07:51] LABS: ALANINE AMINOTRANSFERASE 124 U/L (12-78); ALBUMIN 2.9 g/dL (3.4-5.0); ALKALINE PHOSPHATASE 55 U/L (46-116); ANION GAP 7 mmol/L (8-16); ASPARTATE AMINOTRANSFERASE 34 U/L (15-37); CALCIUM, TOTAL 8.7 mg/dL (8.8-10.5); CARBON DIOXIDE 27 mmol/L (22-29); CHLORIDE 104 mmol/L (98-107); CREATININE 0.82 mg/dL (0.60-1.30); GLOMERULAR FILTR. RATE CALC > 60 mL/min (>60); GLUCOSE,RANDOM 107 mg/dL (70-110); POTASSIUM 4.4 mmol/L (3.5-5.1); SODIUM SERUM 138 mmol/L (136-145); TOTAL PROTEIN, SERUM 5.6 g/dL (6.4-8.2); UREA NITROGEN, BLOOD 20 mg/dL (7-18)
[2021-08-05 08:02] VITALS: BP 109/67
[2021-08-05] MEDS: FAMOTIDINE 20 MG TABLET PO SCH ×2 (09:51→21:34)
[2021-08-05] MEDS: AmLODIPine BESYLATE 5 MG TABLET PO SCH (09:51)
[2021-08-05] MEDS: ETHYL ALCOHOL 62% ANTISEPTIC NASAL INHALANT 0.6 ML AMPUL NASAL SCH ×2 (09:51→21:34)
[2021-08-05 16:15] VITALS: BP 121/88
[2021-08-05] MEDS ORDERED: BENZOCAINE/MENTHOL LOZENGE PO PRN (17:00)
[2021-08-05 19:40] LABS: GLUCOMETER DEV NAME(LOC) 6N.1; GLUCOSE,POINT OF CARE 140 MG/DL (70-110)
[2021-08-05 19:54] VITALS: BP 112/67
[2021-08-05] MEDS: TEMAZEPAM 15 MG CAPSULE PO PRN (21:34)
[2021-08-05] MEDS: BENZONATATE 100 MG CAPSULE PO PRN (21:34)
[2021-08-06] MEDS: DEXTRAN 70 0.1%/HYPROMELL 0.3% 0.9 ML OPHTHALMIC SOLUTION [PF] OU SCH ×6 (00:40→20:29)
[2021-08-06 01:51] LABS: GLUCOMETER DEV NAME(LOC) 4E.2; GLUCOSE,POINT OF CARE 104 MG/DL (70-110)
[2021-08-06 05:11] VITALS: BP 110/64
[2021-08-06 05:55] LABS: BASOPHILS % (AUTO) 1.1 % (0.0-2.0); HEMATOCRIT 34.4 % (36-46); HEMOGLOBIN 11.9 g/dL (12.0-16.0); LYMPHOCYTES # (AUTO) 1.4 K/uL (1.0-4.8); LYMPHOCYTES % (AUTO) 18.3 % (22.0-44.0); MEAN CORPUSCULAR HEMOGLOBIN 32.1 pg (26.0-34.0); MEAN CORPUSCULAR HGB CONC 34.4 G/dL (31.0-37.0); MEAN CORPUSCULAR VOLUME 93 fL (80-100); MONOCYTES # (AUTO) 0.8 K/uL (0.1-1.0); MONOCYTES % (AUTO) 10.1 % (2.0-9.0); NEUTROPHILS # (AUTO) 5.4 K/uL (1.8-7.7); NEUTROPHILS % (AUTO) 68.5 % (40.0-70.0); PLATELET COUNT (AUTO) 183 K/uL (150-450); RED BLOOD CELL COUNT(AUTO) 3.69 MIL/uL (4.00-5.20); RED CELL DISTRIBUTION WIDTH 13.4 % (11.5-14.5)
[2021-08-06 06:08] LABS: ALANINE AMINOTRANSFERASE 109 U/L (12-78); ALBUMIN 2.8 g/dL (3.4-5.0); ALKALINE PHOSPHATASE 54 U/L (46-116); ANION GAP 4 mmol/L (8-16); ASPARTATE AMINOTRANSFERASE 29 U/L (15-37); BILIRUBIN,TOTAL 0.8 mg/dL (0.1-1.0); CALCIUM, TOTAL 8.6 mg/dL (8.8-10.5); CARBON DIOXIDE 26 mmol/L (22-29); CHLORIDE 107 mmol/L (98-107); CREATININE 0.78 mg/dL (0.60-1.30); GLOMERULAR FILTR. RATE CALC > 60 mL/min (>60); GLUCOSE,RANDOM 114 mg/dL (70-110); POTASSIUM 4.4 mmol/L (3.5-5.1); SODIUM SERUM 137 mmol/L (136-145); TOTAL PROTEIN, SERUM 5.5 g/dL (6.4-8.2); UREA NITROGEN, BLOOD 21 mg/dL (7-18)
[2021-08-06 06:41] LABS: GLUCOMETER DEV NAME(LOC) 4E.2; GLUCOSE,POINT OF CARE 95 MG/DL (70-110)
[2021-08-06 08:16] VITALS: BP 102/66
[2021-08-06] MEDS: ETHYL ALCOHOL 62% ANTISEPTIC NASAL INHALANT 0.6 ML AMPUL NASAL SCH ×2 (08:16→21:25)
[2021-08-06] MEDS: AmLODIPine BESYLATE 5 MG TABLET PO SCH (08:16)
[2021-08-06] MEDS: FAMOTIDINE 20 MG TABLET PO SCH ×2 (08:17→20:29)
[2021-08-06 13:39] LABS: COVID AG,FIA SOURCE NASOPHARYNGEAL
[2021-08-06 15:06] LABS: GLUCOMETER DEV NAME(LOC) 4E.2; GLUCOSE,POINT OF CARE 101 MG/DL (70-110)
[2021-08-06] MEDS ORDERED: AMLO5TAB66 PO (18:56)
[2021-08-06] MEDS ORDERED: ETHY1MED NASAL (18:58)
[2021-08-06] MEDS ORDERED: DEXT30DR5 OU (18:59)
[2021-08-06] MEDS ORDERED: FAMO20 PO (19:00)
[2021-08-06] MEDS ORDERED: ACET-784 PO (19:01)
[2021-08-06] MEDS ORDERED: ALBU8HFA IH (19:02)
[2021-08-06] MEDS ORDERED: BENZ1LOZ68 PO (19:03)
[2021-08-06] MEDS ORDERED: LOPE2 PO (19:04)
[2021-08-06] MEDS ORDERED: BENZ-70 PO (19:04)
[2021-08-06] MEDS ORDERED: MOM30 PO (19:06)
[2021-08-06] MEDS ORDERED: TEMA15CA PO (19:07)
[2021-08-06 20:12] VITALS: BP 110/59
[2021-08-06] MEDS: BENZONATATE 100 MG CAPSULE PO PRN (20:29)
[2021-08-07 14:51] LABS: GLUCOMETER DEV NAME(LOC) 4E.2; GLUCOSE,POINT OF CARE 111 MG/DL (70-110)
== END 2021-08-06 21:45 | DRG 871 ==
LOC: EMS 15:11 → ICU 16:11 → 5N 08-01 10:00 → 6S 08-04 18:15
PROVIDERS: ADMIT Internal Medicine; ATTEND Internal Medicine
PROC: XW033H5 Introduction of Tocilizumab into Peripheral Vein, Percutaneous Approach, New Technology Group 5 (ICD-10-PCS; principal; 2021-07-22)
PROC: XW033E5 Introduction of Remdesivir Anti-infective into Peripheral Vein, Percutaneous Approach, New Technology Group 5 (ICD-10-PCS; 2021-07-22)
PROC: 5A0955A Assistance with Respiratory Ventilation, Greater than 96 Consecutive Hours, High Flow/Velocity Cannula (ICD-10-PCS; 2021-07-22)
DX: A41.9 Sepsis, unspecified organism (principal); U07.1 COVID-19; J12.82 Pneumonia due to coronavirus disease 2019; J80 Acute respiratory distress syndrome; I10 Essential (primary) hypertension; E66.9 Obesity, unspecified; D72.810 Lymphocytopenia; Z68.30 Body mass index [BMI] 30.0-30.9, adult; F10.20 Alcohol dependence, uncomplicated; R74.01 Elevation of levels of liver transaminase levels; R79.82 Elevated C-reactive protein (CRP); R79.89 Other specified abnormal findings of blood chemistry; F12.11 Cannabis abuse, in remission; Z87.891 Personal history of nicotine dependence
CPT/HCPCS: 36600; 71045; 71275; 80048; 80053; 82728; 82805; 82962; 83605; 84145; 85007; 85025; 85027; 85379; 86140; 87081; 93005; 93306; 93970; 94761; 97110; 97116; 97163; 97166; 97530; 97535; 99291; G0378; J0456; J0696; J1100; J1644; J7050; Q9967; 36415-L1; 36415-TC